=== PATIENT | male | born 2000 | race Caucasian/White ===

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

== ENCOUNTER 2020-07-13 01:08 | Emergency (ER) | payer OTHER ==
[~2020-07-13] VITALS: Ht 177.8 cm; Wt 68.2 kg
[2020-07-13 01:12] VITALS: Ht 177.8 cm; Wt 68.2 kg
[2020-07-13 02:07] LABS: BASOPHILS 0.1 % (0-2); EOSINOPHILS 0.6 % (0-7); HEMATOCRIT 47.3 % (42.0-54.0); HEMOGLOBIN 15.9 g/dL (13.5-17.5); LYMPHOCYTES 11.8 % (15-50); MCH 29.6 pg (26.0-34.0); MCHC 33.7 g/dL (31.0-37.0); MEAN PLATELET VOLUME 8.9 fL (7.4-10.4); MONOCYTES 6.6 % (2-11); NEUTROPHILS 80.9 % (40-80); PLATELET COUNT 229 10x3/uL (130-400); RBC 5.37 10x6/uL (4.20-6.10); RDW 13.8 % (11.5-14.5); WBC 8.1 10x3/uL (4.8-10.8)
[2020-07-13 02:08] LABS: APTT 25.5 SECONDS (22.8-39.4); INR 1.17 (0.85-1.17); PROTIME 13.8 SECONDS (11.6-15.0)
[2020-07-13 02:38] LABS: CALC OSMOLALITY 278 mosm/kg (275-300); CARBON DIOXIDE 23.6 mmol/L (21.0-32.0); CHLORIDE - SERUM 104 mmol/L (98-107); GLUCOSE 95 mg/dL (74-106); POTASSIUM - SERUM 3.6 mmol/L (3.5-5.1); SODIUM 140 mmol/L (136-145); UREA NITROGEN 13 mg/dL (7-18); eGFR NON AFRICAN AMERICAN > 90 mL/min (90-120)
[2020-07-13 02:44] LABS: ALBUMIN 4.3 g/dL (3.4-5.0); ALKALINE PHOSPHATASE 72 U/L (30-120); ALT (SGPT) 50 U/L (10-68); BILIRUBIN - TOTAL 0.33 mg/dL (0.2-1.3); PROTEIN - SERUM 8.2 g/dL (6.4-8.2)
[2020-07-13 06:33] VITALS: BP 118/65
== END 2020-07-13 04:00 | disposition home or self-care (01) ==
LOC: D.ER 01:08
PROVIDERS: Student in an Organized Health Care Education/Training Program
DX: F10.129 Alcohol abuse with intoxication, unspecified (principal); S52.91XA Unspecified fracture of right forearm, initial encounter for closed fracture; V89.2XXA Person injured in unspecified motor-vehicle accident, traffic, initial encounter; Y93.9 Activity, unspecified; Y92.9 Unspecified place or not applicable; R51.9 Headache, unspecified; M54.9 Dorsalgia, unspecified; M79.604 Pain in right leg; M79.601 Pain in right arm; Y90.4 Blood alcohol level of 80-99 mg/100 ml